=== PATIENT | male | born 1940 | race Caucasian/White ===

== ENCOUNTER 2019-08-05 11:33 | Inpatient (IN) ==
[2019-08-05] MEDS ORDERED: Nitroglycerin 0.4 MG TAB.SUBL SL PRN (16:21)
[2019-08-05] MEDS ORDERED: Acetaminophen/Butalbital/CaffeineTABLET PO PRN (16:21)
[2019-08-05] MEDS ORDERED: *HR* Warfarin 5 MG TABLET PO SCH (16:30)
[2019-08-05] MEDS ORDERED: D5% in Water 1,000 ML IVC PRN (17:08)
[2019-08-05] MEDS ORDERED: *HR* Dextrose 50 % in Water (Vial) 50 ML VIAL IVP PRN (17:08)
[2019-08-05] MEDS ORDERED: Dextrose Gel 15 GM/37.5 ML TUBE PO PRN ×2 (17:08)
[2019-08-05] MEDS ORDERED: Warfarin perPT PO PRN (18:00)
[2019-08-05] MEDS ORDERED: *HR* Warfarin 2.5 MG TABLET PO ONE (18:00)
[2019-08-05] MEDS: *HR* OxyCODONE/APAP 10/325 TABLET PO PRN (19:58)
[2019-08-05] MEDS: Gabapentin 300 MG CAPSULE PO SCH (19:59)
[2019-08-05] MEDS: traZODone 50 MG TABLET PO SCH (19:59)
[2019-08-05] MEDS: Topiramate 25 MG TABLET PO SCH (19:59)
[2019-08-06 07:04] LABS: Basophils % 0.4 %; Eosinophils # 0.3 K/mcL (0.0-0.6); Eosinophils % 5.9 %; Hematocrit 39.2 % (37.5-50.1); Hemoglobin 12.3 g/dL (12.9-16.9); Immature Granulocytes % 0.4 % (0-4); Lymphocytes # 0.9 K/mcL (0.6-4.6); Mean Corpuscular HGB Conc 31.4 g/dL (31.6-35.5); Mean Corpuscular Hemoglobin 29.2 pg (28.0-33.3); Mean Corpuscular Volume 93.1 fL (83.0-100.0); Mean Platelet Volume 9.9 fL (9.4-12.4); Monocytes # 0.6 K/mcL (0.0-1.3); Monocytes % 11.9 %; Neutrophils # 2.9 K/mcL (1.6-8.9); Platelet Count 177 K/mcL (140-400); Red Blood Count 4.21 M/mcL (4.19-5.50); Red Cell Distribution Width 13.6 % (11.5-14.5); Segmented Neutrophils % 61.4 %; White Blood Count 4.7 K/mcL (4.3-11.1)
[2019-08-06 07:21] LABS: INR 3.3; Prothrombin Time 37.7 Seconds (9.4-12.1)
[2019-08-06 07:22] LABS: Calcium 9.5 mg/dL (8.6-10.3); Potassium 5.3 mEq/L (3.5-5.1)
[2019-08-06] MEDS: Aspirin Enteric Coated 81 MG Tablet PO SCH (08:10)
[2019-08-06] MEDS: BuPROPion XL (24 HR) 150 MG TABLET PO SCH (08:10)
[2019-08-06] MEDS: Lactobacillus 1 EACH CAP.SPRINK PO SCH (08:10)
[2019-08-06] MEDS: Multivit/Ca/Min/Fe/FA 1 TAB TABLET PO SCH (08:10)
[2019-08-06] MEDS: Insulin DETEMIR 100 UNIT/ML X5UNITS SQ SCH (08:11)
[2019-08-06] MEDS: *HR* Metformin 500 MG TABLET PO SCH ×2 (08:11→16:31)
[2019-08-06] MEDS: Topiramate 25 MG TABLET PO SCH (19:38)
[2019-08-06] MEDS: Gabapentin 300 MG CAPSULE PO SCH (19:38)
[2019-08-06] MEDS: traZODone 50 MG TABLET PO SCH (19:38)
[2019-08-07 05:53] LABS: INR 2.3; Prothrombin Time 25.6 Seconds (9.4-12.1)
[2019-08-07] MEDS: *HR* Metformin 500 MG TABLET PO SCH (09:21)
[2019-08-07] MEDS: BuPROPion XL (24 HR) 150 MG TABLET PO SCH (09:24)
[2019-08-07] MEDS: Multivit/Ca/Min/Fe/FA 1 TAB TABLET PO SCH (09:35)
[2019-08-07] MEDS: Lactobacillus 1 EACH CAP.SPRINK PO SCH (09:35)
[2019-08-07] MEDS: Aspirin Enteric Coated 81 MG Tablet PO SCH (09:36)
[2019-08-07] MEDS: Insulin LISPRO 300 UNITS/3 ML VIAL SQ SCH ×4 (09:38→21:21)
[2019-08-07] MEDS: Insulin DETEMIR 100 UNIT/ML X5UNITS SQ SCH (09:39)
[2019-08-07 10:30] LABS: BUN/Creatinine Ratio 42 (6-26); Blood Urea Nitrogen 53 mg/dL (8-23); Carbon Dioxide 26 mEq/L (23-29); Chloride 105 mEq/L (98-107); Glucose 188 mg/dL (70-105); Magnesium 1.9 mg/dL (1.6-2.6); Osmolality,Calculated 303 (280-300); Potassium 4.9 mEq/L (3.5-5.1); Sodium 137 mEq/L (136-145); eGFR For African Americans > 60 (> 60); eGFR For Non-African Americans 55 (> 60)
[2019-08-07] MEDS ORDERED: 0.9 % Sodium Chloride 1,000 ML IV SCH (11:00)
[2019-08-07] MEDS ORDERED: *HR* Warfarin 1 MG TABLET PO ONE (18:00)
[2019-08-07] MEDS: Topiramate 25 MG TABLET PO SCH (21:20)
[2019-08-07] MEDS: traZODone 50 MG TABLET PO SCH (21:20)
[2019-08-07] MEDS: Gabapentin 300 MG CAPSULE PO SCH (21:20)
[2019-08-08 07:48] LABS: INR 1.5; Prothrombin Time 16.5 Seconds (9.4-12.1)
[2019-08-08] MEDS: Insulin LISPRO 300 UNITS/3 ML VIAL SQ SCH ×4 (08:18→20:43)
[2019-08-08] MEDS: Insulin DETEMIR 100 UNIT/ML X5UNITS SQ SCH (08:41)
[2019-08-08] MEDS: BuPROPion XL (24 HR) 150 MG TABLET PO SCH (09:03)
[2019-08-08] MEDS: Aspirin Enteric Coated 81 MG Tablet PO SCH (09:03)
[2019-08-08] MEDS: Multivit/Ca/Min/Fe/FA 1 TAB TABLET PO SCH (09:03)
[2019-08-08] MEDS: Lactobacillus 1 EACH CAP.SPRINK PO SCH (09:03)
[2019-08-08] MEDS ORDERED: *HR* Warfarin 2 MG TABLET PO ONE (18:00)
[2019-08-08] MEDS: Gabapentin 300 MG CAPSULE PO SCH (20:47)
[2019-08-08] MEDS: Topiramate 25 MG TABLET PO SCH (20:47)
[2019-08-08] MEDS: traZODone 50 MG TABLET PO SCH (20:48)
[2019-08-09 06:59] LABS: INR 1.3; Prothrombin Time 14.6 Seconds (9.4-12.1)
[2019-08-09] MEDS: Insulin DETEMIR 100 UNIT/ML X5UNITS SQ SCH (08:19)
[2019-08-09] MEDS: Insulin LISPRO 300 UNITS/3 ML VIAL SQ SCH ×4 (09:18→20:14)
[2019-08-09] MEDS: Multivit/Ca/Min/Fe/FA 1 TAB TABLET PO SCH (09:19)
[2019-08-09] MEDS: *HR* OxyCODONE/APAP 10/325 TABLET PO PRN ×2 (09:19→18:39)
[2019-08-09] MEDS: Aspirin Enteric Coated 81 MG Tablet PO SCH (09:19)
[2019-08-09] MEDS: Lactobacillus 1 EACH CAP.SPRINK PO SCH (09:19)
[2019-08-09] MEDS: BuPROPion XL (24 HR) 150 MG TABLET PO SCH (09:19)
[2019-08-09] MEDS: *HR* Enoxaparin 80 MG/0.8 ML SYRINGE SQ SCH (17:58)
[2019-08-09] MEDS ORDERED: *HR* Warfarin 2 MG TABLET PO ONE (18:00)
[2019-08-09] MEDS ORDERED: *HR* Enoxaparin 80 MG/0.8 ML SYRINGE SQ SCH (18:00)
[2019-08-09] MEDS: traZODone 50 MG TABLET PO SCH (20:23)
[2019-08-09] MEDS: Gabapentin 300 MG CAPSULE PO SCH (20:24)
[2019-08-09] MEDS: Topiramate 25 MG TABLET PO SCH (20:25)
[2019-08-10 05:46] LABS: INR 1.2; Prothrombin Time 13.9 Seconds (9.4-12.1)
[2019-08-10] MEDS: *HR* Enoxaparin 80 MG/0.8 ML SYRINGE SQ SCH ×2 (06:17→18:29)
[2019-08-10] MEDS: Multivit/Ca/Min/Fe/FA 1 TAB TABLET PO SCH (08:05)
[2019-08-10] MEDS: BuPROPion XL (24 HR) 150 MG TABLET PO SCH (08:05)
[2019-08-10] MEDS: *HR* OxyCODONE/APAP 10/325 TABLET PO PRN ×2 (08:05→20:29)
[2019-08-10] MEDS: Aspirin Enteric Coated 81 MG Tablet PO SCH (08:06)
[2019-08-10] MEDS: Lactobacillus 1 EACH CAP.SPRINK PO SCH (08:06)
[2019-08-10] MEDS: Insulin DETEMIR 100 UNIT/ML X5UNITS SQ SCH (08:17)
[2019-08-10 15:55] LABS: Hematocrit 39.5 % (37.5-50.1); Hemoglobin 12.1 g/dL (12.9-16.9); Mean Corpuscular HGB Conc 30.6 g/dL (31.6-35.5); Mean Corpuscular Hemoglobin 28.8 pg (28.0-33.3); Mean Platelet Volume 11.1 fL (9.4-12.4); Platelet Count 191 K/mcL (140-400); Red Cell Distribution Width 13.7 % (11.5-14.5); White Blood Count 5.1 K/mcL (4.3-11.1)
[2019-08-10 16:03] LABS: BUN/Creatinine Ratio 37 (6-26); Blood Urea Nitrogen 43 mg/dL (8-23); Calcium 9.1 mg/dL (8.6-10.3); Carbon Dioxide 27 mEq/L (23-29); Chloride 104 mEq/L (98-107); Glucose 109 mg/dL (70-105); Osmolality,Calculated 293 (280-300); Potassium 4.3 mEq/L (3.5-5.1); Sodium 136 mEq/L (136-145); eGFR For African Americans > 60 (> 60); eGFR For Non-African Americans > 60 (> 60)
[2019-08-10] MEDS ORDERED: *HR* Warfarin 5 MG TABLET PO SCH (16:21)
[2019-08-10] MEDS ORDERED: *HR* Warfarin 5 MG TABLET PO ONE (18:00)
[2019-08-10] MEDS: Insulin LISPRO 300 UNITS/3 ML VIAL SQ SCH ×3 (18:04→18:06)
[2019-08-10] MEDS: Topiramate 25 MG TABLET PO SCH (20:25)
[2019-08-10] MEDS: traZODone 50 MG TABLET PO SCH (20:25)
[2019-08-10] MEDS: Gabapentin 300 MG CAPSULE PO SCH (20:26)
[2019-08-11] MEDS: Insulin LISPRO 300 UNITS/3 ML VIAL SQ SCH ×5 (06:08→20:42)
[2019-08-11 06:20] LABS: INR 1.3; Prothrombin Time 14.8 Seconds (9.4-12.1)
[2019-08-11] MEDS: *HR* Enoxaparin 80 MG/0.8 ML SYRINGE SQ SCH ×2 (07:35→17:07)
[2019-08-11] MEDS: Lactobacillus 1 EACH CAP.SPRINK PO SCH (09:04)
[2019-08-11] MEDS: BuPROPion XL (24 HR) 150 MG TABLET PO SCH (09:04)
[2019-08-11] MEDS: Multivit/Ca/Min/Fe/FA 1 TAB TABLET PO SCH (09:04)
[2019-08-11] MEDS: Aspirin Enteric Coated 81 MG Tablet PO SCH (09:04)
[2019-08-11] MEDS: Insulin DETEMIR 100 UNIT/ML X5UNITS SQ SCH (09:05)
[2019-08-11] MEDS ORDERED: *HR* Warfarin 5 MG TABLET PO ONE (18:00)
[2019-08-11] MEDS: Gabapentin 300 MG CAPSULE PO SCH (20:41)
[2019-08-11] MEDS: Topiramate 25 MG TABLET PO SCH (20:41)
[2019-08-11] MEDS: traZODone 50 MG TABLET PO SCH (20:41)
[2019-08-12] MEDS: *HR* Enoxaparin 80 MG/0.8 ML SYRINGE SQ SCH ×2 (05:33→17:24)
[2019-08-12 06:24] LABS: INR 1.5; Prothrombin Time 17.4 Seconds (9.4-12.1)
[2019-08-12] MEDS: Insulin LISPRO 300 UNITS/3 ML VIAL SQ SCH ×4 (07:39→20:14)
[2019-08-12] MEDS: Aspirin Enteric Coated 81 MG Tablet PO SCH (09:06)
[2019-08-12] MEDS: Lactobacillus 1 EACH CAP.SPRINK PO SCH (09:06)
[2019-08-12] MEDS: Multivit/Ca/Min/Fe/FA 1 TAB TABLET PO SCH (09:06)
[2019-08-12] MEDS: BuPROPion XL (24 HR) 150 MG TABLET PO SCH (09:06)
[2019-08-12] MEDS: Insulin DETEMIR 100 UNIT/ML X5UNITS SQ SCH (09:08)
[2019-08-12] MEDS: *HR* OxyCODONE/APAP 10/325 TABLET PO PRN ×2 (11:14→20:17)
[2019-08-12] MEDS ORDERED: *HR* Warfarin 5 MG TABLET PO ONE (18:00)
[2019-08-12] MEDS: Topiramate 25 MG TABLET PO SCH (20:13)
[2019-08-12] MEDS: traZODone 50 MG TABLET PO SCH (20:13)
[2019-08-12] MEDS: Gabapentin 300 MG CAPSULE PO SCH (20:13)
[2019-08-13] MEDS: *HR* Enoxaparin 80 MG/0.8 ML SYRINGE SQ SCH ×2 (05:37→17:20)
[2019-08-13 06:32] LABS: INR 1.7; Prothrombin Time 19.5 Seconds (9.4-12.1)
[2019-08-13] MEDS: Insulin LISPRO 300 UNITS/3 ML VIAL SQ SCH ×4 (08:36→20:40)
[2019-08-13] MEDS: Insulin DETEMIR 100 UNIT/ML X5UNITS SQ SCH (08:37)
[2019-08-13] MEDS: BuPROPion XL (24 HR) 150 MG TABLET PO SCH (08:37)
[2019-08-13] MEDS: Aspirin Enteric Coated 81 MG Tablet PO SCH (08:37)
[2019-08-13] MEDS: Multivit/Ca/Min/Fe/FA 1 TAB TABLET PO SCH (08:37)
[2019-08-13] MEDS: Lactobacillus 1 EACH CAP.SPRINK PO SCH (08:37)
[2019-08-13 10:04] LABS: Hematocrit 40.7 % (37.5-50.1); Hemoglobin 12.5 g/dL (12.9-16.9); Mean Corpuscular HGB Conc 30.7 g/dL (31.6-35.5); Mean Corpuscular Volume 94.4 fL (83.0-100.0); Mean Platelet Volume 9.8 fL (9.4-12.4); Platelet Count 232 K/mcL (140-400); Red Blood Count 4.31 M/mcL (4.19-5.50); Red Cell Distribution Width 14.1 % (11.5-14.5); White Blood Count 5.7 K/mcL (4.3-11.1)
[2019-08-13 10:21] LABS: BUN/Creatinine Ratio 47 (6-26); Blood Urea Nitrogen 53 mg/dL (8-23); Calcium 9.3 mg/dL (8.6-10.3); Carbon Dioxide 25 mEq/L (23-29); Chloride 103 mEq/L (98-107); Glucose 164 mg/dL (70-105); Osmolality,Calculated 298 (280-300); Potassium 4.5 mEq/L (3.5-5.1); Sodium 135 mEq/L (136-145); eGFR For African Americans > 60 (> 60); eGFR For Non-African Americans > 60 (> 60)
[2019-08-13] MEDS: *HR* Metformin 500 MG TABLET PO SCH (17:15)
[2019-08-13] MEDS ORDERED: *HR* Warfarin 5 MG TABLET PO ONE (18:00)
[2019-08-13] MEDS: Gabapentin 300 MG CAPSULE PO SCH (20:47)
[2019-08-13] MEDS: traZODone 50 MG TABLET PO SCH (20:47)
[2019-08-13] MEDS: Topiramate 25 MG TABLET PO SCH (20:47)
[2019-08-13] MEDS: *HR* OxyCODONE/APAP 10/325 TABLET PO PRN (20:55)
[2019-08-14] MEDS: *HR* Enoxaparin 80 MG/0.8 ML SYRINGE SQ SCH (05:40)
[2019-08-14 06:15] LABS: Prothrombin Time 22.2 Seconds (9.4-12.1)
[2019-08-14] MEDS: *HR* Metformin 500 MG TABLET PO SCH ×2 (08:00→17:35)
[2019-08-14] MEDS: Multivit/Ca/Min/Fe/FA 1 TAB TABLET PO SCH (08:00)
[2019-08-14] MEDS: Aspirin Enteric Coated 81 MG Tablet PO SCH (08:00)
[2019-08-14] MEDS: BuPROPion XL (24 HR) 150 MG TABLET PO SCH (08:00)
[2019-08-14] MEDS: Lactobacillus 1 EACH CAP.SPRINK PO SCH (08:00)
[2019-08-14] MEDS ORDERED: BuPROPion XL (24 HR) 150 MG TABLET PO ONE (09:18)
[2019-08-14] MEDS ORDERED: *HR* Metformin 500 MG TABLET ONE (09:18)
[2019-08-14] MEDS ORDERED: Lactobacillus 1 EACH CAP.SPRINK ONE (09:18)
[2019-08-14] MEDS ORDERED: Multivit/Ca/Min/Fe/FA 1 TAB TABLET ONE (09:18)
[2019-08-14] MEDS ORDERED: Aspirin Enteric Coated 81 MG Tablet PO ONE (09:18)
[2019-08-14] MEDS: Insulin LISPRO 300 UNITS/3 ML VIAL SQ SCH ×4 (11:30→20:53)
[2019-08-14] MEDS: Insulin DETEMIR 100 UNIT/ML X5UNITS SQ SCH (16:44)
[2019-08-14] MEDS ORDERED: *HR* Warfarin 5 MG TABLET PO ONE (18:00)
[2019-08-14] MEDS: Gabapentin 300 MG CAPSULE PO SCH (20:31)
[2019-08-14] MEDS: traZODone 50 MG TABLET PO SCH (20:32)
[2019-08-14] MEDS: Topiramate 25 MG TABLET PO SCH (20:32)
[2019-08-14] MEDS: *HR* OxyCODONE/APAP 10/325 TABLET PO PRN (20:36)
[2019-08-15 08:50] LABS: Prothrombin Time 22.2 Seconds (9.4-12.1)
[2019-08-15] MEDS: *HR* Metformin 500 MG TABLET PO SCH ×2 (08:51→15:50)
[2019-08-15] MEDS: Multivit/Ca/Min/Fe/FA 1 TAB TABLET PO SCH (08:51)
[2019-08-15] MEDS: BuPROPion XL (24 HR) 150 MG TABLET PO SCH (08:51)
[2019-08-15] MEDS: Aspirin Enteric Coated 81 MG Tablet PO SCH (08:51)
[2019-08-15] MEDS: Insulin LISPRO 300 UNITS/3 ML VIAL SQ SCH ×4 (08:51→22:02)
[2019-08-15] MEDS: Lactobacillus 1 EACH CAP.SPRINK PO SCH (08:52)
[2019-08-15] MEDS: Insulin DETEMIR 100 UNIT/ML X5UNITS SQ SCH (08:52)
[2019-08-15] MEDS: *HR* OxyCODONE/APAP 10/325 TABLET PO PRN (16:07)
[2019-08-15] MEDS ORDERED: *HR* Warfarin 5 MG TABLET PO ONE (18:00)
[2019-08-15] MEDS: Gabapentin 300 MG CAPSULE PO SCH (20:05)
[2019-08-15] MEDS: traZODone 50 MG TABLET PO SCH (20:05)
[2019-08-15] MEDS: Topiramate 25 MG TABLET PO SCH (20:06)
[2019-08-16 07:00] VITALS: BP 154/68
[2019-08-16 07:25] LABS: Hematocrit 36.8 % (37.5-50.1); Hemoglobin 11.5 g/dL (12.9-16.9); Mean Corpuscular HGB Conc 31.3 g/dL (31.6-35.5); Mean Corpuscular Hemoglobin 29.3 pg (28.0-33.3); Mean Corpuscular Volume 93.6 fL (83.0-100.0); Platelet Count 191 K/mcL (140-400); Red Blood Count 3.93 M/mcL (4.19-5.50); Red Cell Distribution Width 14.1 % (11.5-14.5); White Blood Count 6.3 K/mcL (4.3-11.1)
[2019-08-16 07:31] LABS: INR 2.2; Prothrombin Time 25.2 Seconds (9.4-12.1)
[2019-08-16 07:38] LABS: BUN/Creatinine Ratio 51 (6-26); Blood Urea Nitrogen 51 mg/dL (8-23); Calcium 9.1 mg/dL (8.6-10.3); Carbon Dioxide 26 mEq/L (23-29); Chloride 107 mEq/L (98-107); Glucose 107 mg/dL (70-105); Osmolality,Calculated 298 (280-300); Potassium 5.4 mEq/L (3.5-5.1); Sodium 137 mEq/L (136-145); eGFR For African Americans > 60 (> 60); eGFR For Non-African Americans > 60 (> 60)
[2019-08-16] MEDS: Insulin LISPRO 300 UNITS/3 ML VIAL SQ SCH ×2 (08:41→11:44)
[2019-08-16] MEDS: *HR* Metformin 500 MG TABLET PO SCH (08:42)
[2019-08-16] MEDS: Aspirin Enteric Coated 81 MG Tablet PO SCH (08:43)
[2019-08-16] MEDS: Lactobacillus 1 EACH CAP.SPRINK PO SCH (08:43)
[2019-08-16] MEDS: Insulin DETEMIR 100 UNIT/ML X5UNITS SQ SCH (08:43)
[2019-08-16] MEDS: Multivit/Ca/Min/Fe/FA 1 TAB TABLET PO SCH (08:43)
[2019-08-16] MEDS: BuPROPion XL (24 HR) 150 MG TABLET PO SCH (08:43)
[2019-08-16] MEDS: *HR* OxyCODONE/APAP 10/325 TABLET PO PRN (08:53)
[2019-08-16] MEDS ORDERED: *HR* Warfarin 5 MG TABLET PO ONE (18:00)
== END 2019-08-16 12:00 | disposition home or self-care (01) | DRG 57 ==
LOC: INPPIK 15:14
PROVIDERS: ADMIT Family Medicine; ATTEND Family Medicine

== ENCOUNTER 2020-01-14 19:47 | Inpatient (IN) ==
[~2020-01-14 19:47] MED LIST: *HR* OxyCODONE/APAP 10/325 TABLET PO PRN; Nitroglycerin 0.4 MG TAB.SUBL SL PRN; polyethylene glycoL 3350 17 GM POWD.PACK PO PRN
[2020-01-14] MEDS: Topiramate 25 MG TABLET PO SCH (21:24)
[2020-01-14] MEDS: lisinopriL 10 MG TABLET PO SCH (21:25)
[2020-01-14] MEDS: traZODone 50 MG TABLET PO SCH (21:26)
[2020-01-14] MEDS: Ranolazine 500 MG TAB.ER.12H PO SCH (21:26)
[2020-01-14] MEDS: Cefdinir 300 MG CAPSULE PO SCH (21:26)
[2020-01-14] MEDS: Gabapentin 300 MG CAPSULE PO SCH (21:27)
[2020-01-14] MEDS ORDERED: hydrALAZINE 25 MG TABLET PO PRN (21:46)
[2020-01-14 21:57] LABS: Prothrombin Time 22.5 Seconds (9.4-12.1)
[2020-01-15] MEDS: Levothyroxine 25 MCG TABLET PO SCH (04:51)
[2020-01-15 06:29] LABS: Basophils % 0.5 %; Eosinophils # 0.3 K/mcL (0.0-0.6); Immature Granulocytes % 0.7 % (0-4); Lymphocytes # 1.3 K/mcL (0.6-4.6); Lymphocytes % 22.1 %; Mean Corpuscular HGB Conc 32.4 g/dL (31.6-35.5); Mean Corpuscular Hemoglobin 31.2 pg (28.0-33.3); Mean Corpuscular Volume 96.1 fL (83.0-100.0); Mean Platelet Volume 10.6 fL (9.4-12.4); Monocytes # 0.6 K/mcL (0.0-1.3); Monocytes % 9.2 %; Neutrophils # 3.8 K/mcL (1.6-8.9); Platelet Count 131 K/mcL (140-400); Red Blood Count 3.85 M/mcL (4.19-5.50); Red Cell Distribution Width 14.6 % (11.5-14.5); Segmented Neutrophils % 62.5 %
[2020-01-15 06:41] LABS: BUN/Creatinine Ratio 21 (6-26); Blood Urea Nitrogen 26 mg/dL (8-23); Calcium 8.8 mg/dL (8.6-10.3); Carbon Dioxide 23 mEq/L (23-29); Chloride 106 mEq/L (98-107); Glucose 106 mg/dL (70-105); Osmolality,Calculated 289 (280-300); Potassium 5.3 mEq/L (3.5-5.1); Sodium 137 mEq/L (136-145); eGFR For African Americans > 60 (> 60); eGFR For Non-African Americans 58 (> 60)
[2020-01-15 07:26] LABS: Platelet Estimate Normal (Normal)
[2020-01-15] MEDS: Multivit/Ca/Min/Fe/FA 1 TAB TABLET PO SCH (08:15)
[2020-01-15] MEDS: lisinopriL 10 MG TABLET PO SCH ×2 (08:15→21:06)
[2020-01-15] MEDS: Ranolazine 500 MG TAB.ER.12H PO SCH ×2 (08:15→21:06)
[2020-01-15] MEDS: BuPROPion XL (24 HR) 150 MG TABLET PO SCH (08:15)
[2020-01-15] MEDS: Aspirin Enteric Coated 81 MG Tablet PO SCH (08:15)
[2020-01-15] MEDS: *HR* Metformin 500 MG TABLET PO SCH ×2 (08:16→17:42)
[2020-01-15] MEDS: Cefdinir 300 MG CAPSULE PO SCH ×2 (08:16→21:05)
[2020-01-15 08:37] LABS: Prothrombin Time 21.8 Seconds (9.4-12.1)
[2020-01-15 08:38] LABS: INR 1.9
[2020-01-15] MEDS ORDERED: *HR* Dextrose 50 % in Water (Vial) 50 ML VIAL IVP PRN (08:47)
[2020-01-15] MEDS ORDERED: D5% in Water 1,000 ML IVC PRN (08:47)
[2020-01-15] MEDS ORDERED: Dextrose Gel 15 GM/37.5 ML TUBE PO PRN ×2 (08:47)
[2020-01-15] MEDS: Insulin LISPRO 300 UNITS/3 ML VIAL SQ SCH ×3 (15:21→20:42)
[2020-01-15] MEDS ORDERED: Warfarin perPT PO PRN (18:00)
[2020-01-15] MEDS ORDERED: *HR* Metformin 500 MG TABLET PO SCH (18:00)
[2020-01-15] MEDS ORDERED: *HR* Warfarin 5 MG TABLET PO SCH (18:00)
[2020-01-15] MEDS ORDERED: *HR* Warfarin 5 MG TABLET PO ONE (18:00)
[2020-01-15] MEDS: Gabapentin 300 MG CAPSULE PO SCH (21:06)
[2020-01-15] MEDS: Topiramate 25 MG TABLET PO SCH (21:06)
[2020-01-15] MEDS: traZODone 50 MG TABLET PO SCH (21:07)
[2020-01-16] MEDS: Levothyroxine 25 MCG TABLET PO SCH (04:59)
[2020-01-16] MEDS: Insulin LISPRO 300 UNITS/3 ML VIAL SQ SCH ×4 (07:39→21:01)
[2020-01-16] MEDS: Aspirin Enteric Coated 81 MG Tablet PO SCH (08:30)
[2020-01-16] MEDS: Ranolazine 500 MG TAB.ER.12H PO SCH ×2 (08:30→21:03)
[2020-01-16] MEDS: *HR* Metformin 500 MG TABLET PO SCH ×2 (08:30→16:45)
[2020-01-16] MEDS: Multivit/Ca/Min/Fe/FA 1 TAB TABLET PO SCH (08:30)
[2020-01-16] MEDS: lisinopriL 10 MG TABLET PO SCH ×2 (08:30→21:03)
[2020-01-16] MEDS: BuPROPion XL (24 HR) 150 MG TABLET PO SCH (08:30)
[2020-01-16] MEDS: Cefdinir 300 MG CAPSULE PO SCH ×2 (08:30→21:04)
[2020-01-16] MEDS: Fenofibrate 54 MG TABLET PO SCH (08:30)
[2020-01-16 16:16] LABS: INR 1.8; Prothrombin Time 20.1 Seconds (9.4-12.1)
[2020-01-16 16:26] LABS: BUN/Creatinine Ratio 21 (6-26); Blood Urea Nitrogen 23 mg/dL (8-23); Calcium 8.8 mg/dL (8.6-10.3); Carbon Dioxide 30 mEq/L (23-29); Chloride 102 mEq/L (98-107); Glucose 94 mg/dL (70-105); Osmolality,Calculated 287 (280-300); Potassium 4.4 mEq/L (3.5-5.1); Sodium 137 mEq/L (136-145); eGFR For African Americans > 60 (> 60); eGFR For Non-African Americans > 60 (> 60)
[2020-01-16] MEDS ORDERED: *HR* Warfarin 5 MG TABLET PO ONE (18:00)
[2020-01-16] MEDS: traZODone 50 MG TABLET PO SCH (21:03)
[2020-01-16] MEDS: Topiramate 25 MG TABLET PO SCH (21:03)
[2020-01-16] MEDS: Gabapentin 300 MG CAPSULE PO SCH (21:03)
[2020-01-17] MEDS: Levothyroxine 25 MCG TABLET PO SCH (05:50)
[2020-01-17] MEDS: Ranolazine 500 MG TAB.ER.12H PO SCH ×2 (08:16→21:11)
[2020-01-17] MEDS: Fenofibrate 54 MG TABLET PO SCH (08:16)
[2020-01-17] MEDS: Multivit/Ca/Min/Fe/FA 1 TAB TABLET PO SCH (08:16)
[2020-01-17] MEDS: Aspirin Enteric Coated 81 MG Tablet PO SCH (08:17)
[2020-01-17] MEDS: lisinopriL 10 MG TABLET PO SCH ×2 (08:17→21:11)
[2020-01-17] MEDS: Cefdinir 300 MG CAPSULE PO SCH ×2 (08:17→21:11)
[2020-01-17] MEDS: *HR* Metformin 500 MG TABLET PO SCH ×2 (08:18→17:23)
[2020-01-17] MEDS: BuPROPion XL (24 HR) 150 MG TABLET PO SCH (08:18)
[2020-01-17] MEDS: Insulin LISPRO 300 UNITS/3 ML VIAL SQ SCH ×4 (08:21→21:11)
[2020-01-17 08:29] LABS: INR 1.8
[2020-01-17 08:30] LABS: Prothrombin Time 20.4 Seconds (9.4-12.1)
[2020-01-17] MEDS ORDERED: *HR* Warfarin 5 MG TABLET PO ONE (18:00)
[2020-01-17] MEDS: Topiramate 25 MG TABLET PO SCH (21:11)
[2020-01-17] MEDS: Gabapentin 300 MG CAPSULE PO SCH (21:11)
[2020-01-17] MEDS: traZODone 50 MG TABLET PO SCH (21:11)
[2020-01-18] MEDS: Levothyroxine 25 MCG TABLET PO SCH (05:35)
[2020-01-18] MEDS: Insulin LISPRO 300 UNITS/3 ML VIAL SQ SCH ×4 (07:32→21:35)
[2020-01-18] MEDS: Multivit/Ca/Min/Fe/FA 1 TAB TABLET PO SCH (07:52)
[2020-01-18] MEDS: *HR* Metformin 500 MG TABLET PO SCH ×2 (07:52→16:42)
[2020-01-18] MEDS: BuPROPion XL (24 HR) 150 MG TABLET PO SCH (07:52)
[2020-01-18] MEDS: Fenofibrate 54 MG TABLET PO SCH (07:52)
[2020-01-18] MEDS: Ranolazine 500 MG TAB.ER.12H PO SCH ×2 (07:52→21:37)
[2020-01-18] MEDS: Aspirin Enteric Coated 81 MG Tablet PO SCH (07:52)
[2020-01-18] MEDS: lisinopriL 10 MG TABLET PO SCH ×2 (07:52→21:37)
[2020-01-18 08:17] LABS: Prothrombin Time 22.7 Seconds (9.4-12.1)
[2020-01-18] MEDS ORDERED: *HR* Warfarin 5 MG TABLET PO ONE (18:00)
[2020-01-18] MEDS: Topiramate 25 MG TABLET PO SCH (21:37)
[2020-01-18] MEDS: Gabapentin 300 MG CAPSULE PO SCH (21:37)
[2020-01-18] MEDS: traZODone 50 MG TABLET PO SCH (21:37)
[2020-01-19] MEDS: Levothyroxine 25 MCG TABLET PO SCH (05:51)
[2020-01-19 06:13] LABS: INR 2.1; Prothrombin Time 24.3 Seconds (9.4-12.1)
[2020-01-19] MEDS: Insulin LISPRO 300 UNITS/3 ML VIAL SQ SCH ×4 (08:00→21:20)
[2020-01-19] MEDS: *HR* Metformin 500 MG TABLET PO SCH ×2 (09:03→17:10)
[2020-01-19] MEDS: Multivit/Ca/Min/Fe/FA 1 TAB TABLET PO SCH (09:03)
[2020-01-19] MEDS: Aspirin Enteric Coated 81 MG Tablet PO SCH (09:03)
[2020-01-19] MEDS: Fenofibrate 54 MG TABLET PO SCH (09:04)
[2020-01-19] MEDS: lisinopriL 20 MG TABLET PO SCH ×2 (09:04→21:19)
[2020-01-19] MEDS: BuPROPion XL (24 HR) 150 MG TABLET PO SCH (09:07)
[2020-01-19] MEDS: Ranolazine 500 MG TAB.ER.12H PO SCH ×2 (09:08→21:19)
[2020-01-19] MEDS ORDERED: *HR* Warfarin 5 MG TABLET PO ONE (18:00)
[2020-01-19] MEDS: traZODone 50 MG TABLET PO SCH (21:19)
[2020-01-19] MEDS: Topiramate 25 MG TABLET PO SCH (21:19)
[2020-01-19] MEDS: Gabapentin 300 MG CAPSULE PO SCH (21:20)
[2020-01-20 05:28] LABS: INR 2.9; Prothrombin Time 33.5 Seconds (9.4-12.1)
[2020-01-20] MEDS: Levothyroxine 25 MCG TABLET PO SCH (06:07)
[2020-01-20] MEDS: BuPROPion XL (24 HR) 150 MG TABLET PO SCH (09:18)
[2020-01-20] MEDS: Multivit/Ca/Min/Fe/FA 1 TAB TABLET PO SCH (09:19)
[2020-01-20] MEDS: Insulin LISPRO 300 UNITS/3 ML VIAL SQ SCH ×4 (09:19→21:18)
[2020-01-20] MEDS: Ranolazine 500 MG TAB.ER.12H PO SCH ×2 (09:19→21:18)
[2020-01-20] MEDS: Aspirin Enteric Coated 81 MG Tablet PO SCH (09:19)
[2020-01-20] MEDS: *HR* Metformin 500 MG TABLET PO SCH ×2 (09:19→18:08)
[2020-01-20] MEDS: lisinopriL 20 MG TABLET PO SCH ×2 (09:19→21:18)
[2020-01-20] MEDS: Fenofibrate 54 MG TABLET PO SCH (09:19)
[2020-01-20] MEDS ORDERED: *HR* Warfarin 2.5 MG TABLET PO ONE (18:00)
[2020-01-20] MEDS: Topiramate 25 MG TABLET PO SCH (21:17)
[2020-01-20] MEDS: Gabapentin 300 MG CAPSULE PO SCH (21:18)
[2020-01-20] MEDS: traZODone 50 MG TABLET PO SCH (21:18)
[2020-01-21] MEDS: Levothyroxine 25 MCG TABLET PO SCH (05:24)
[2020-01-21 06:00] LABS: INR 3.7; Prothrombin Time 41.8 Seconds (9.4-12.1)
[2020-01-21] MEDS: Fenofibrate 54 MG TABLET PO SCH (09:05)
[2020-01-21] MEDS: Insulin LISPRO 300 UNITS/3 ML VIAL SQ SCH ×4 (09:06→20:36)
[2020-01-21] MEDS: BuPROPion XL (24 HR) 150 MG TABLET PO SCH (09:06)
[2020-01-21] MEDS: Ranolazine 500 MG TAB.ER.12H PO SCH ×2 (09:06→20:35)
[2020-01-21] MEDS: lisinopriL 20 MG TABLET PO SCH ×2 (09:06→20:35)
[2020-01-21] MEDS: *HR* Metformin 500 MG TABLET PO SCH ×2 (09:06→16:02)
[2020-01-21] MEDS: Multivit/Ca/Min/Fe/FA 1 TAB TABLET PO SCH (09:06)
[2020-01-21] MEDS: Aspirin Enteric Coated 81 MG Tablet PO SCH (09:06)
[2020-01-21] MEDS ORDERED: *HR* Warfarin 5 MG TABLET PO SCH (18:00)
[2020-01-21] MEDS: traZODone 50 MG TABLET PO SCH (20:34)
[2020-01-21] MEDS: Gabapentin 300 MG CAPSULE PO SCH (20:34)
[2020-01-21] MEDS: Topiramate 25 MG TABLET PO SCH (20:35)
[2020-01-22 06:30] LABS: INR 2.4; Prothrombin Time 27.2 Seconds (9.4-12.1)
[2020-01-22] MEDS: Levothyroxine 25 MCG TABLET PO SCH (06:56)
[2020-01-22] MEDS: Insulin LISPRO 300 UNITS/3 ML VIAL SQ SCH ×2 (07:54→11:42)
[2020-01-22] MEDS: *HR* Metformin 500 MG TABLET PO SCH (08:04)
[2020-01-22] MEDS: Fenofibrate 54 MG TABLET PO SCH (08:04)
[2020-01-22] MEDS: BuPROPion XL (24 HR) 150 MG TABLET PO SCH (08:04)
[2020-01-22] MEDS: Ranolazine 500 MG TAB.ER.12H PO SCH (08:04)
[2020-01-22] MEDS: Multivit/Ca/Min/Fe/FA 1 TAB TABLET PO SCH (08:04)
[2020-01-22] MEDS: lisinopriL 20 MG TABLET PO SCH (08:04)
[2020-01-22] MEDS: Aspirin Enteric Coated 81 MG Tablet PO SCH (08:04)
[2020-01-22 08:41] VITALS: BP 167/66
[2020-01-22] MEDS ORDERED: *HR* Warfarin 3 MG TABLET PO ONE (18:00)
== END 2020-01-22 12:16 | disposition home or self-care (01) | DRG 945 ==
LOC: INPPIK 20:15
PROVIDERS: ADMIT Family Medicine; ATTEND Family Medicine

== ENCOUNTER 2020-03-24 15:49 | Inpatient (IN) ==
[2020-03-24] MEDS ORDERED: Acetaminophen/Butalbital/CaffeineTABLET PO PRN (15:56)
[2020-03-24] MEDS ORDERED: polyethylene glycoL 3350 17 GM POWD.PACK PO PRN (15:56)
[2020-03-24] MEDS ORDERED: *HR* OxyCODONE/APAP 10/325 TABLET PO PRN (15:56)
[2020-03-24] MEDS ORDERED: Nitroglycerin 0.4 MG TAB.SUBL SL PRN (15:56)
[2020-03-24] MEDS ORDERED: *HR* Warfarin 5 MG TABLET PO SCH (20:00)
[2020-03-24] MEDS ORDERED: *HR* Metformin 500 MG TABLET PO SCH (20:00)
[2020-03-24] MEDS: Gabapentin 300 MG CAPSULE PO SCH (20:36)
[2020-03-24] MEDS: Ranolazine 500 MG TAB.ER.12H PO SCH (20:37)
[2020-03-24] MEDS: Topiramate 25 MG TABLET PO SCH (20:38)
[2020-03-24] MEDS: traZODone 50 MG TABLET PO SCH (20:39)
[2020-03-24] MEDS: lisinopriL 10 MG TABLET PO SCH (20:39)
[2020-03-24] MEDS: cephALEXin 500 MG CAPSULE PO SCH (20:41)
[2020-03-25 08:02] LABS: Basophils % 0.5 %; Eosinophils # 0.2 K/mcL (0.0-0.6); Eosinophils % 5.3 %; Hematocrit 36.5 % (37.5-50.1); Hemoglobin 11.3 g/dL (12.9-16.9); Immature Granulocytes % 0.8 % (0-4); Lymphocytes # 0.8 K/mcL (0.6-4.6); Lymphocytes % 22.1 %; Mean Corpuscular Hemoglobin 30.5 pg (28.0-33.3); Mean Corpuscular Volume 98.4 fL (83.0-100.0); Mean Platelet Volume 10.2 fL (9.4-12.4); Monocytes # 0.4 K/mcL (0.0-1.3); Monocytes % 9.8 %; Neutrophils # 2.3 K/mcL (1.6-8.9); Platelet Count 130 K/mcL (140-400); Red Blood Count 3.71 M/mcL (4.19-5.50); Red Cell Distribution Width 14.2 % (11.5-14.5); Segmented Neutrophils % 61.5 %; White Blood Count 3.8 K/mcL (4.3-11.1)
[2020-03-25 08:16] LABS: Calcium 8.5 mg/dL (8.6-10.3); Potassium 4.3 mEq/L (3.5-5.1)
[2020-03-25] MEDS: cephALEXin 500 MG CAPSULE PO SCH ×2 (08:56→21:03)
[2020-03-25] MEDS: Aspirin Enteric Coated 81 MG Tablet PO SCH (08:57)
[2020-03-25] MEDS: BuPROPion XL (24 HR) 150 MG TABLET PO SCH (08:57)
[2020-03-25] MEDS: lisinopriL 10 MG TABLET PO SCH ×2 (08:57→21:03)
[2020-03-25] MEDS: Ranolazine 500 MG TAB.ER.12H PO SCH ×2 (08:58→21:03)
[2020-03-25] MEDS: Multivit/Ca/Min/Fe/FA 1 TAB TABLET PO SCH (08:59)
[2020-03-25] MEDS: (Ezetimibe [Zetia] 10 MG) PO SCH (09:00)
[2020-03-25] MEDS ORDERED: Ipratropium/Albuterol Neb 3 ML IH PRN (11:09)
[2020-03-25 11:40] LABS: INR 1.8; Prothrombin Time 20.4 Seconds (9.4-12.1)
[2020-03-25] MEDS: *HR* Metformin 500 MG TABLET PO SCH (17:02)
[2020-03-25] MEDS ORDERED: Warfarin perPT PO PRN (18:00)
[2020-03-25] MEDS ORDERED: *HR* Warfarin 5 MG TABLET PO ONE (18:00)
[2020-03-25] MEDS: Gabapentin 300 MG CAPSULE PO SCH (21:02)
[2020-03-25] MEDS: Sennosides 8.6 MG TABLET PO SCH (21:03)
[2020-03-25] MEDS: traZODone 50 MG TABLET PO SCH (21:03)
[2020-03-25] MEDS: Topiramate 25 MG TABLET PO SCH (21:03)
[2020-03-26 07:12] LABS: INR 1.9
[2020-03-26] MEDS: Ranolazine 500 MG TAB.ER.12H PO SCH ×2 (08:49→20:26)
[2020-03-26] MEDS: *HR* Metformin 500 MG TABLET PO SCH ×2 (08:50→16:46)
[2020-03-26] MEDS: Aspirin Enteric Coated 81 MG Tablet PO SCH (08:50)
[2020-03-26] MEDS: BuPROPion XL (24 HR) 150 MG TABLET PO SCH (08:50)
[2020-03-26] MEDS: Multivit/Ca/Min/Fe/FA 1 TAB TABLET PO SCH (08:50)
[2020-03-26] MEDS: Sennosides 8.6 MG TABLET PO SCH ×2 (08:50→20:27)
[2020-03-26] MEDS: lisinopriL 10 MG TABLET PO SCH ×2 (08:50→20:26)
[2020-03-26] MEDS: cephALEXin 500 MG CAPSULE PO SCH ×2 (08:50→20:30)
[2020-03-26] MEDS: (Ezetimibe [Zetia] 10 MG) PO SCH (08:51)
[2020-03-26] MEDS ORDERED: *HR* Warfarin 5 MG TABLET PO ONE (18:00)
[2020-03-26] MEDS: Gabapentin 300 MG CAPSULE PO SCH (20:26)
[2020-03-26] MEDS: Topiramate 25 MG TABLET PO SCH (20:27)
[2020-03-26] MEDS: traZODone 50 MG TABLET PO SCH (20:28)
[2020-03-27] MEDS: (Ezetimibe [Zetia] 10 MG) PO SCH (08:08)
[2020-03-27] MEDS: lisinopriL 10 MG TABLET PO SCH ×2 (08:17→20:36)
[2020-03-27] MEDS: Sennosides 8.6 MG TABLET PO SCH ×2 (08:18→20:37)
[2020-03-27] MEDS: cephALEXin 500 MG CAPSULE PO SCH (08:18)
[2020-03-27] MEDS: Aspirin Enteric Coated 81 MG Tablet PO SCH (08:18)
[2020-03-27] MEDS: Ranolazine 500 MG TAB.ER.12H PO SCH ×2 (08:18→20:36)
[2020-03-27] MEDS: BuPROPion XL (24 HR) 150 MG TABLET PO SCH (08:18)
[2020-03-27] MEDS: *HR* Metformin 500 MG TABLET PO SCH ×2 (08:18→16:43)
[2020-03-27] MEDS: Multivit/Ca/Min/Fe/FA 1 TAB TABLET PO SCH (08:18)
[2020-03-27 08:32] LABS: INR 2.1; Prothrombin Time 23.6 Seconds (9.4-12.1)
[2020-03-27] MEDS ORDERED: *HR* Warfarin 5 MG TABLET PO ONE (18:00)
[2020-03-27] MEDS: Gabapentin 300 MG CAPSULE PO SCH (20:36)
[2020-03-27] MEDS: traZODone 50 MG TABLET PO SCH (20:36)
[2020-03-27] MEDS: Topiramate 25 MG TABLET PO SCH (20:36)
[2020-03-28 06:21] LABS: INR 2.2; Prothrombin Time 25.2 Seconds (9.4-12.1)
[2020-03-28] MEDS: lisinopriL 10 MG TABLET PO SCH ×2 (08:53→20:58)
[2020-03-28] MEDS: (Ezetimibe [Zetia] 10 MG) PO SCH (08:54)
[2020-03-28] MEDS: Aspirin Enteric Coated 81 MG Tablet PO SCH (09:02)
[2020-03-28] MEDS: Ranolazine 500 MG TAB.ER.12H PO SCH ×2 (09:02→20:58)
[2020-03-28] MEDS: Multivit/Ca/Min/Fe/FA 1 TAB TABLET PO SCH (09:02)
[2020-03-28] MEDS: BuPROPion XL (24 HR) 150 MG TABLET PO SCH (09:02)
[2020-03-28] MEDS: *HR* Metformin 500 MG TABLET PO SCH ×2 (09:02→17:06)
[2020-03-28] MEDS: Sennosides 8.6 MG TABLET PO SCH ×2 (09:03→20:59)
[2020-03-28] MEDS ORDERED: *HR* Warfarin 5 MG TABLET PO ONE (18:15)
[2020-03-28] MEDS: Gabapentin 300 MG CAPSULE PO SCH (20:57)
[2020-03-28] MEDS: traZODone 50 MG TABLET PO SCH (20:57)
[2020-03-28] MEDS: Topiramate 25 MG TABLET PO SCH (20:58)
[2020-03-29 07:57] LABS: INR 3.2; Prothrombin Time 36.2 Seconds (9.4-12.1)
[2020-03-29] MEDS: Multivit/Ca/Min/Fe/FA 1 TAB TABLET PO SCH (09:26)
[2020-03-29] MEDS: Ranolazine 500 MG TAB.ER.12H PO SCH ×2 (09:27→20:41)
[2020-03-29] MEDS: BuPROPion XL (24 HR) 150 MG TABLET PO SCH (09:27)
[2020-03-29] MEDS: *HR* Metformin 500 MG TABLET PO SCH ×2 (09:27→16:14)
[2020-03-29] MEDS: Sennosides 8.6 MG TABLET PO SCH ×2 (09:28→20:42)
[2020-03-29] MEDS: lisinopriL 10 MG TABLET PO SCH (09:28)
[2020-03-29] MEDS: Aspirin Enteric Coated 81 MG Tablet PO SCH (09:28)
[2020-03-29] MEDS: (Ezetimibe [Zetia] 10 MG) PO SCH (09:30)
[2020-03-29 09:48] LABS: Hematocrit 35.5 % (37.5-50.1); Hemoglobin 11.4 g/dL (12.9-16.9); Mean Corpuscular HGB Conc 32.1 g/dL (31.6-35.5); Mean Corpuscular Hemoglobin 30.8 pg (28.0-33.3); Mean Corpuscular Volume 95.9 fL (83.0-100.0); Mean Platelet Volume 9.7 fL (9.4-12.4); Platelet Count 147 K/mcL (140-400); Red Cell Distribution Width 14.6 % (11.5-14.5)
[2020-03-29 10:05] LABS: Calcium 7.7 mg/dL (8.6-10.3)
[2020-03-29] MEDS ORDERED: methylPREDNISolone 125 MG/2 ML VIAL IVP ONE (14:54)
[2020-03-29] MEDS: traZODone 50 MG TABLET PO SCH (20:42)
[2020-03-29] MEDS: Gabapentin 300 MG CAPSULE PO SCH (20:42)
[2020-03-29] MEDS: Doxycycline 100 MG CAPSULE PO SCH (20:42)
[2020-03-29] MEDS: Topiramate 25 MG TABLET PO SCH (20:43)
[2020-03-29] MEDS ORDERED: lisinopriL 5 MG TABLET PO SCH (21:00)
[2020-03-30] MEDS: MethylPREDNISolone 40 MG/ML VIAL IVP SCH ×4 (00:54→23:57)
[2020-03-30 07:04] LABS: Hematocrit 36.1 % (37.5-50.1); Hemoglobin 11.8 g/dL (12.9-16.9); Mean Corpuscular HGB Conc 32.7 g/dL (31.6-35.5); Mean Corpuscular Hemoglobin 30.4 pg (28.0-33.3); Mean Platelet Volume 10.2 fL (9.4-12.4); Platelet Count 173 K/mcL (140-400); Red Blood Count 3.88 M/mcL (4.19-5.50); Red Cell Distribution Width 14.3 % (11.5-14.5)
[2020-03-30 07:21] LABS: Calcium 7.9 mg/dL (8.6-10.3); Magnesium 1.6 mg/dL (1.6-2.6); Potassium 5.2 mEq/L (3.5-5.1)
[2020-03-30 08:02] LABS: Prothrombin Time 44.4 Seconds (9.4-12.1)
[2020-03-30] MEDS: *HR* Metformin 500 MG TABLET PO SCH ×2 (10:35→16:10)
[2020-03-30] MEDS: Aspirin Enteric Coated 81 MG Tablet PO SCH (10:35)
[2020-03-30] MEDS: Doxycycline 100 MG CAPSULE PO SCH ×2 (10:35→20:19)
[2020-03-30] MEDS: BuPROPion XL (24 HR) 150 MG TABLET PO SCH (10:36)
[2020-03-30] MEDS: Multivit/Ca/Min/Fe/FA 1 TAB TABLET PO SCH (10:36)
[2020-03-30] MEDS: (Ezetimibe [Zetia] 10 MG) PO SCH (10:36)
[2020-03-30] MEDS: Sennosides 8.6 MG TABLET PO SCH ×2 (10:36→20:20)
[2020-03-30] MEDS: Ranolazine 500 MG TAB.ER.12H PO SCH ×2 (10:36→20:20)
[2020-03-30] MEDS: lisinopriL 5 MG TABLET PO SCH (10:37)
[2020-03-30 12:29] LABS: Hemoglobin 11.5 g/dL (12.9-16.9); Immature Granulocytes % 0.9 % (0-4); Lymphocytes # 0.3 K/mcL (0.6-4.6); Lymphocytes % 4.6 %; Mean Corpuscular HGB Conc 32.9 g/dL (31.6-35.5); Mean Corpuscular Hemoglobin 30.7 pg (28.0-33.3); Mean Corpuscular Volume 93.6 fL (83.0-100.0); Mean Platelet Volume 9.6 fL (9.4-12.4); Monocytes # 0.1 K/mcL (0.0-1.3); Monocytes % 1.3 %; Neutrophils # 6.5 K/mcL (1.6-8.9); Platelet Count 167 K/mcL (140-400); Red Blood Count 3.74 M/mcL (4.19-5.50); Red Cell Distribution Width 14.3 % (11.5-14.5); Segmented Neutrophils % 93.2 %; White Blood Count 6.9 K/mcL (4.3-11.1)
[2020-03-30 12:44] LABS: Albumin/Globulin Ratio 1.4 (1.1-2.2); Bilirubin,Total 0.4 mg/dL (0.3-1.0); Calcium 7.9 mg/dL (8.6-10.3); Globulin 2.8 g/dL (2.4-3.5); Potassium 5.1 mEq/L (3.5-5.1); Total Protein 6.8 g/dL (6.4-8.9)
[2020-03-30] MEDS: 0.9 % Sodium Chloride 1,000 ML IVC SCH ×2 (12:59→21:32)
[2020-03-30] MEDS: Piperacillin/Tazobactam 3.375 GM in 0.9 % Sodium Chloride Mini Bag 100 ML IVPB SCH ×2 (13:02→20:15)
[2020-03-30] MEDS ORDERED: *HR* Warfarin 5 MG TABLET PO SCH (18:00)
[2020-03-30 18:10] LABS: Bilirubin,Urine Negative (Negative); Blood,Urine Negative (Negative); Clarity,Urine Clear (Clear); Color,Urine Yellow (Yellow); Glucose,Urine (UA) Normal (Normal); Ketones,Urine Negative (Negative); Leukocyte Esterase,Urine Negative (Negative); Nitrite,Urine Negative (Negative); PH,Urine 5.5 pH Units (5.0-8.0); Protein,Urine Negative (Neg-Trace); Specific Gravity,Urine 1.015 (1.010-1.025); Urobilinogen,Urine Normal (Normal)
[2020-03-30] MEDS: Topiramate 25 MG TABLET PO SCH (20:20)
[2020-03-30] MEDS: traZODone 50 MG TABLET PO SCH (20:20)
[2020-03-30] MEDS: Gabapentin 300 MG CAPSULE PO SCH (20:20)
[2020-03-31] MEDS: Piperacillin/Tazobactam 3.375 GM in 0.9 % Sodium Chloride Mini Bag 100 ML IVPB SCH ×3 (05:20→21:26)
[2020-03-31] MEDS: 0.9 % Sodium Chloride 1,000 ML IVC SCH ×3 (05:21→21:27)
[2020-03-31 07:48] LABS: INR 4.5; Prothrombin Time 49.5 Seconds (9.4-12.1)
[2020-03-31] MEDS: MethylPREDNISolone 40 MG/ML VIAL IVP SCH (10:01)
[2020-03-31] MEDS: *HR* Metformin 500 MG TABLET PO SCH ×2 (10:03→18:07)
[2020-03-31] MEDS: Ranolazine 500 MG TAB.ER.12H PO SCH ×2 (10:04→21:25)
[2020-03-31] MEDS: BuPROPion XL (24 HR) 150 MG TABLET PO SCH (10:14)
[2020-03-31] MEDS: Aspirin Enteric Coated 81 MG Tablet PO SCH (10:14)
[2020-03-31] MEDS: Doxycycline 100 MG CAPSULE PO SCH ×2 (10:16→21:25)
[2020-03-31] MEDS: Sennosides 8.6 MG TABLET PO SCH ×2 (10:16→21:24)
[2020-03-31] MEDS: Multivit/Ca/Min/Fe/FA 1 TAB TABLET PO SCH (10:17)
[2020-03-31] MEDS: (Ezetimibe [Zetia] 10 MG) PO SCH (10:18)
[2020-03-31] MEDS: lisinopriL 5 MG TABLET PO SCH (10:19)
[2020-03-31 15:29] LABS: Adenovirus Not Detected (Not Detect); Bordetella Pertussis Not Detected (Not Detect); Chlamydophila pneumoniae Not Detected (Not Detect); Coronavirus 229E Not Detected (Not Detect); Coronavirus HKU1 Not Detected (Not Detect); Coronavirus NL63 Not Detected (Not Detect); Coronavirus OC43 Not Detected (Not Detect); Human Metapneumovirus Not Detected (Not Detect); Human Rhinovirus/Enterovirus Not Detected (Not Detect); Influenza A Subtype 2009 H1 Not Detected (Not Detect); Influenza B Not Detected (Not Detect); Mycoplasma pneumoniae Not Detected (Not Detect); Parainfluenza Virus 1 Not Detected (Not Detect); Parainfluenza Virus 2 Not Detected (Not Detect); Parainfluenza Virus 3 Not Detected (Not Detect); Parainfluenza Virus 4 Not Detected (Not Detect); Respiratory Syncytial Virus Not Detected (Not Detect); SARS-CoV-2 Not Detected (Not Detect)
[2020-03-31] MEDS: traZODone 50 MG TABLET PO SCH (21:24)
[2020-03-31] MEDS: Gabapentin 300 MG CAPSULE PO SCH (21:25)
[2020-03-31] MEDS: Topiramate 25 MG TABLET PO SCH (21:26)
[2020-04-01] MEDS: Piperacillin/Tazobactam 3.375 GM in 0.9 % Sodium Chloride Mini Bag 100 ML IVPB SCH ×3 (05:33→21:13)
[2020-04-01] MEDS: 0.9 % Sodium Chloride 1,000 ML IVC SCH ×3 (05:40→23:25)
[2020-04-01 06:47] LABS: Hematocrit 36.1 % (37.5-50.1); Hemoglobin 11.5 g/dL (12.9-16.9); Mean Corpuscular HGB Conc 31.9 g/dL (31.6-35.5); Mean Corpuscular Hemoglobin 30.6 pg (28.0-33.3); Mean Platelet Volume 10.3 fL (9.4-12.4); Platelet Count 213 K/mcL (140-400); Red Blood Count 3.76 M/mcL (4.19-5.50); Red Cell Distribution Width 15.3 % (11.5-14.5)
[2020-04-01 06:48] LABS: INR 3.5; Prothrombin Time 39.5 Seconds (9.4-12.1)
[2020-04-01 07:03] LABS: BUN/Creatinine Ratio 28 (6-26); Blood Urea Nitrogen 36 mg/dL (8-23); Calcium 7.7 mg/dL (8.6-10.3); Carbon Dioxide 18 mEq/L (23-29); Chloride 111 mEq/L (98-107); Glucose 85 mg/dL (70-105); Osmolality,Calculated 292 (280-300); Potassium 4.3 mEq/L (3.5-5.1); Sodium 137 mEq/L (136-145); eGFR For African Americans > 60 (> 60); eGFR For Non-African Americans 55 (> 60)
[2020-04-01] MEDS: lisinopriL 5 MG TABLET PO SCH (08:56)
[2020-04-01] MEDS: Aspirin Enteric Coated 81 MG Tablet PO SCH (08:56)
[2020-04-01] MEDS: Doxycycline 100 MG CAPSULE PO SCH ×2 (08:56→20:40)
[2020-04-01] MEDS: BuPROPion XL (24 HR) 150 MG TABLET PO SCH (08:56)
[2020-04-01] MEDS: Ranolazine 500 MG TAB.ER.12H PO SCH ×2 (08:56→20:40)
[2020-04-01] MEDS: Multivit/Ca/Min/Fe/FA 1 TAB TABLET PO SCH (08:56)
[2020-04-01] MEDS: Sennosides 8.6 MG TABLET PO SCH ×2 (08:57→20:40)
[2020-04-01] MEDS: *HR* Metformin 500 MG TABLET PO SCH ×2 (08:57→15:13)
[2020-04-01] MEDS: (Ezetimibe [Zetia] 10 MG) PO SCH (08:57)
[2020-04-01] MEDS ORDERED: predniSONE 20 MG TABLET PO ONE (13:01)
[2020-04-01] MEDS: Topiramate 25 MG TABLET PO SCH (20:40)
[2020-04-01] MEDS: Gabapentin 300 MG CAPSULE PO SCH (20:40)
[2020-04-01] MEDS: traZODone 50 MG TABLET PO SCH (20:40)
[2020-04-02] MEDS: Piperacillin/Tazobactam 3.375 GM in 0.9 % Sodium Chloride Mini Bag 100 ML IVPB SCH ×3 (05:21→21:28)
[2020-04-02] MEDS: 0.9 % Sodium Chloride 1,000 ML IVC SCH ×3 (06:29→23:59)
[2020-04-02] MEDS: (Ezetimibe [Zetia] 10 MG) PO SCH (09:10)
[2020-04-02] MEDS: Sennosides 8.6 MG TABLET PO SCH ×2 (09:10→20:42)
[2020-04-02] MEDS: Ranolazine 500 MG TAB.ER.12H PO SCH ×2 (10:00→20:42)
[2020-04-02] MEDS: Aspirin Enteric Coated 81 MG Tablet PO SCH (10:01)
[2020-04-02] MEDS: Doxycycline 100 MG CAPSULE PO SCH ×2 (10:01→20:42)
[2020-04-02] MEDS: Multivit/Ca/Min/Fe/FA 1 TAB TABLET PO SCH (10:01)
[2020-04-02] MEDS: lisinopriL 10 MG TABLET PO SCH (10:01)
[2020-04-02] MEDS: predniSONE 20 MG TABLET PO SCH (10:02)
[2020-04-02] MEDS: BuPROPion XL (24 HR) 150 MG TABLET PO SCH (10:03)
[2020-04-02] MEDS: *HR* Metformin 500 MG TABLET PO SCH ×2 (10:03→15:56)
[2020-04-02 10:36] LABS: INR 1.8; Prothrombin Time 20.6 Seconds (9.4-12.1)
[2020-04-02] MEDS: lisinopriL 5 MG TABLET PO SCH (11:01)
[2020-04-02] MEDS ORDERED: *HR* Warfarin 5 MG TABLET PO ONE (18:00)
[2020-04-02] MEDS: Gabapentin 300 MG CAPSULE PO SCH (20:41)
[2020-04-02] MEDS: Topiramate 25 MG TABLET PO SCH (20:41)
[2020-04-02] MEDS: traZODone 50 MG TABLET PO SCH (20:41)
[2020-04-03] MEDS: Piperacillin/Tazobactam 3.375 GM in 0.9 % Sodium Chloride Mini Bag 100 ML IVPB SCH ×3 (05:24→20:28)
[2020-04-03 08:35] LABS: INR 1.6
[2020-04-03] MEDS: Ranolazine 500 MG TAB.ER.12H PO SCH ×2 (09:21→20:23)
[2020-04-03] MEDS: Aspirin Enteric Coated 81 MG Tablet PO SCH (09:21)
[2020-04-03] MEDS: predniSONE 20 MG TABLET PO SCH (09:21)
[2020-04-03] MEDS: *HR* Metformin 500 MG TABLET PO SCH ×2 (09:21→17:24)
[2020-04-03] MEDS: BuPROPion XL (24 HR) 150 MG TABLET PO SCH (09:21)
[2020-04-03] MEDS: Multivit/Ca/Min/Fe/FA 1 TAB TABLET PO SCH (09:21)
[2020-04-03] MEDS: 0.9 % Sodium Chloride 1,000 ML IVC SCH (09:22)
[2020-04-03] MEDS: Sennosides 8.6 MG TABLET PO SCH ×2 (09:22→20:23)
[2020-04-03] MEDS: lisinopriL 10 MG TABLET PO SCH (09:22)
[2020-04-03] MEDS: Doxycycline 100 MG CAPSULE PO SCH (09:22)
[2020-04-03] MEDS: (Ezetimibe [Zetia] 10 MG) PO SCH (09:24)
[2020-04-03] MEDS ORDERED: *HR* Warfarin 5 MG TABLET PO ONE (18:00)
[2020-04-03] MEDS: traZODone 50 MG TABLET PO SCH (20:23)
[2020-04-03] MEDS: Topiramate 25 MG TABLET PO SCH (20:23)
[2020-04-03] MEDS: Gabapentin 300 MG CAPSULE PO SCH (20:23)
[2020-04-04] MEDS: Piperacillin/Tazobactam 3.375 GM in 0.9 % Sodium Chloride Mini Bag 100 ML IVPB SCH ×2 (05:25→13:36)
[2020-04-04 06:53] LABS: INR 1.7; Prothrombin Time 19.6 Seconds (9.4-12.1)
[2020-04-04] MEDS: Aspirin Enteric Coated 81 MG Tablet PO SCH (07:44)
[2020-04-04] MEDS: BuPROPion XL (24 HR) 150 MG TABLET PO SCH (07:44)
[2020-04-04] MEDS: *HR* Metformin 500 MG TABLET PO SCH ×2 (07:45→17:34)
[2020-04-04] MEDS: Ranolazine 500 MG TAB.ER.12H PO SCH ×2 (07:45→20:38)
[2020-04-04] MEDS: lisinopriL 10 MG TABLET PO SCH (07:45)
[2020-04-04] MEDS: predniSONE 20 MG TABLET PO SCH (07:45)
[2020-04-04] MEDS: Sennosides 8.6 MG TABLET PO SCH ×2 (07:45→20:38)
[2020-04-04] MEDS: Multivit/Ca/Min/Fe/FA 1 TAB TABLET PO SCH (07:45)
[2020-04-04] MEDS: (Ezetimibe [Zetia] 10 MG) PO SCH (07:46)
[2020-04-04] MEDS ORDERED: *HR* Warfarin 5 MG TABLET PO ONE (18:00)
[2020-04-04] MEDS: Ipratropium/Albuterol Neb 3 ML IH SCH ×2 (18:30→22:21)
[2020-04-04] MEDS: Topiramate 25 MG TABLET PO SCH (20:38)
[2020-04-04] MEDS: traZODone 50 MG TABLET PO SCH (20:38)
[2020-04-04] MEDS: Gabapentin 300 MG CAPSULE PO SCH (20:38)
[2020-04-05] MEDS: Ipratropium/Albuterol Neb 3 ML IH SCH ×4 (04:21→23:27)
[2020-04-05 05:52] LABS: Basophils % 0.4 %; Eosinophils % 0.1 %; Hematocrit 35.9 % (37.5-50.1); Hemoglobin 11.7 g/dL (12.9-16.9); Lymphocytes # 0.6 K/mcL (0.6-4.6); Mean Corpuscular HGB Conc 32.6 g/dL (31.6-35.5); Mean Corpuscular Hemoglobin 30.5 pg (28.0-33.3); Mean Corpuscular Volume 93.5 fL (83.0-100.0); Mean Platelet Volume 9.7 fL (9.4-12.4); Monocytes # 0.5 K/mcL (0.0-1.3); Monocytes % 6.1 %; Neutrophils # 6.6 K/mcL (1.6-8.9); Nucleated Red Blood Cells 0.3 /100 WBC (0); Platelet Count 180 K/mcL (140-400); Red Blood Count 3.84 M/mcL (4.19-5.50); Red Cell Distribution Width 15.6 % (11.5-14.5); Segmented Neutrophils % 83.4 %; White Blood Count 7.9 K/mcL (4.3-11.1)
[2020-04-05 06:11] LABS: BUN/Creatinine Ratio 18 (6-26); Blood Urea Nitrogen 20 mg/dL (8-23); Calcium 7.9 mg/dL (8.6-10.3); Carbon Dioxide 24 mEq/L (23-29); Chloride 106 mEq/L (98-107); Glucose 98 mg/dL (70-105); Osmolality,Calculated 289 (280-300); Potassium 3.9 mEq/L (3.5-5.1); Sodium 138 mEq/L (136-145); eGFR For African Americans > 60 (> 60); eGFR For Non-African Americans > 60 (> 60)
[2020-04-05 06:43] LABS: INR 2.1; Prothrombin Time 23.3 Seconds (9.4-12.1)
[2020-04-05] MEDS: predniSONE 20 MG TABLET PO SCH (09:37)
[2020-04-05] MEDS: lisinopriL 10 MG TABLET PO SCH (09:37)
[2020-04-05] MEDS: Ranolazine 500 MG TAB.ER.12H PO SCH (09:37)
[2020-04-05] MEDS: Aspirin Enteric Coated 81 MG Tablet PO SCH (09:37)
[2020-04-05] MEDS: *HR* Metformin 500 MG TABLET PO SCH ×2 (09:37→18:03)
[2020-04-05] MEDS: Sennosides 8.6 MG TABLET PO SCH (09:37)
[2020-04-05] MEDS: Multivit/Ca/Min/Fe/FA 1 TAB TABLET PO SCH (09:37)
[2020-04-05] MEDS: (Ezetimibe [Zetia] 10 MG) PO SCH (09:38)
[2020-04-05] MEDS: BuPROPion XL (24 HR) 150 MG TABLET PO SCH (09:38)
[2020-04-05] MEDS ORDERED: *HR* Warfarin 3 MG TABLET PO ONE (18:00)
[2020-04-05 19:06] VITALS: BP 177/77
== END 2020-04-05 19:45 | disposition short-term general hospital (02) | DRG 945 ==
LOC: INPPIK 19:40
PROVIDERS: ADMIT Family Medicine; ATTEND Family Medicine